=== PATIENT | female | born 1970 | race Hispanic/Latino ===

== ENCOUNTER 2017-01-10 21:36 | Observation (INO) | payer SELFPAY ==
[~2017-01-10] VITALS: Ht 147.3 cm; Wt 81.0 kg
[~2017-01-10 21:36] MED LIST: CORGARD20 MG OR; DIABETA5 MG OR; ECOTRIN325 MG PO; LEVOTHYROXIN50 MCG PO; LORTAB 5 OR; NITROQUICK0.4 MG SL; PROMETHAZINE25 M1 RE; TUSSIONEX1 ML OR
--- NOTE | 2017-01-10 21:59 | NUR ---
PATIENT MEDICATED ORDERED. WILL MONITOR PAIN FOR EFFECT.
[2017-01-10 22:08] LABS: HEMATOCRIT 33.8 % (37.0-47.0); HEMOGLOBIN 10.7 g/dl (12.0-16.0); IMMATURE GRANULOCYTES 0.3 % (0.0-1.0); MEAN CELL VOLUME 73.2 fL CALC (80.0-100.0); MEAN CORPUSCULAR HGB 23.2 pG CALC (26.0-32.0); MEAN CORPUSCULAR HGB CONC 31.7 g/L CALC (32.0-36.0); NEUT# 5.15 thou/uL (2.00-7.15); RED BLOOD COUNT 4.62 mill/uL (4.20-5.60)
[2017-01-10 22:24] LABS: ALBUMIN 4.1 g/dL (3.2-5.0); ALKALINE PHOSPHATASE 146 u/l (38-126); ANION GAP 16 (6-22 (CALC)); BILIRUBIN, TOTAL 0.2 mg/dL (0.0-1.4); BUN 8 mg/dL (7-17); BUN/CREATININE RATIO 15 (12-20 (CALC)); CALCIUM 8.9 mg/dL (8.4-10.2); CARBON DIOXIDE 20 mmol/l (22-30); CHLORIDE 110 mmol/l (95-108); CREATININE 0.5 mg/dL (0.5-1.0); GFR > 60 ML/MIN (>=60 (CALC)); GFR FOR AFR.AMER. > 60 ML/MIN (>=60 (CALC)); GLUCOSE 112 mg/dL (65-105); POTASSIUM 3.7 mmol/l (3.5-5.1); SGOT/AST 31 u/l (14-36); SGPT/ALT 55 u/l (9-52); SODIUM 142 mmol/l (137-146); TOTAL PROTEIN 7.2 g/dL (6.3-8.2)
[2017-01-10 22:35] LABS: MYOGLOBIN 22 ng/mL (0 - 62)
--- NOTE | 2017-01-10 22:55 | NUR ---
PT DENIES ANY PAIN AT THIS TIME. PT TO BE ADMITTED. FAMILY AWARE. SON TOOK PT'S MEDICATION AND PURSE HOME.
[2017-01-10] MEDS ORDERED: METFORMIN500 MG PO (22:58)
[2017-01-10] MEDS ORDERED: LOVASTATIN10 MG PO (22:59)
[2017-01-10] MEDS ORDERED: GLIPIZIDE10 MG PO (22:59)
[2017-01-10] MEDS ORDERED: TERBINAFINE250 MG PO (23:00)
[2017-01-10] MEDS ORDERED: RANITIDINE150 M1 PO (23:00)
--- NOTE | 2017-01-10 23:19 | NUR ---
REPRT GIVEN TO MIKE BURT
--- NOTE | 2017-01-10 23:30 | NUR ---
Admission Note Report Given to: MIKE BURT Transported by: X Wheelchair Stretcher Transported with: X Nurse Transporter X Patent IV O2 X Cargo Station Worker
--- NOTE | 2017-01-10 23:31 | NUR ---
PT ARRIVED TO UNIT VIA WHEELCHAIR WITH ER STAFF. AMUBULATED INDEPENDENTLY TO BED. DENIES CHEST PAIN AT THIS TIME. RESPIRATIONS EVEN AND UNLABORED. 2 FAMILY MEMBERS AT BEDSIDE. ORIENTED TO ROOM AND CALL LIGHT SYSTEM. CUSTOMER RELATIONS SPECIALIST IN PLACE.
--- NOTE | 2017-01-11 | NUR ---
PT ASLEEP AT THIS TIME. ASSESSMENT WNL. NO SIGNS OF DISTRESS NOTED. RESPIRATIONS EVEN AND UNLABORED. IV FLUIDS INFUSING WITHOUT DIFFICULTY; IV SITE APPEARS HEALTHY. SAFETY MEASURES IN PLACE. CALL LIGHT WITHIN REACH.
[2017-01-11 00:22] VITALS: BP 132/74
[2017-01-11 01:04] LABS: URINE BILIRUBIN - DIPSTICK NEGATIVE (NEGATIVE); URINE BLOOD DIPSTICK NEGATIVE (NEGATIVE); URINE CLARITY CLEAR; URINE COLOR YELLOW; URINE GLUCOSE - DIPSTICK NEGATIVE (NEGATIVE); URINE KETONE NEGATIVE (NEGATIVE); URINE LEUK ESTERASE NEGATIVE (NEGATIVE); URINE NITRITE - DIPSTICK NEGATIVE (Negative); URINE PROTEIN - DIPSTICK NEGATIVE (NEG-TRACE); URINE SPECIFIC GRAVITY <=1.005; URINE UROBILINOGEN - DIPSTICK 0.2 E.U./dL (0.2)
--- NOTE | 2017-01-11 04:10 | NUR ---
PT ASLEEP AT THIS TIME. NO SIGNS OF DISTRESS NOTED. RESPIRATIONS EVEN AND UNLBAORED. NO CHANGES IN ASSESSMENT NOTED. CONDITION APPEARS STABLE. SAFETY MEASURES IN PLACE. CALL LIGHT WITHIN REACH.
[2017-01-11 04:40] VITALS: BP 88/56
[2017-01-11 06:08] LABS: ANION GAP 13 (6-22 (CALC)); BUN 6 mg/dL (7-17); BUN/CREATININE RATIO 12 (12-20 (CALC)); CALCIUM 8.6 mg/dL (8.4-10.2); CALCULATED LDLCHOLESTEROL 94 mg/dL (62-129 (CALC)); CARBON DIOXIDE 22 mmol/l (22-30); CHLORIDE 109 mmol/l (95-108); CHOLESTEROL HDL RATIO 3.4 (<4.4 (CALC)); CREATININE 0.5 mg/dL (0.5-1.0); GFR > 60 ML/MIN (>=60 (CALC)); GFR FOR AFR.AMER. > 60 ML/MIN (>=60 (CALC)); GLUCOSE 116 mg/dL (65-105); HDL CHOLESTEROL 45 mg/dL (>=40); MAGNESIUM 1.9 mg/dL (1.6-2.3); POTASSIUM 3.8 mmol/l (3.5-5.1); SODIUM 141 mmol/l (137-146); TOTAL CHOLESTEROL 156 mg/dl (0-199); TRIGLYCERIDES REFLEX TO dLDL 82 mg/dl (30-149); VLDL CHOLESTROL 16 mg/dl (1-41 (CALC))
[2017-01-11 06:37] LABS: TSH, 3RD GENERATION 5.69 uIU/mL (0.47 - 4.68)
--- NOTE | 2017-01-11 07:25 | NUR ---
REPORT RECEIVED FROM NIGHT NURSE, PT.SLEEPING IN BED W/LIGHTS OUT AT THIS TIME, DID NOT AROUSE TO OUR ENTERING ROOM; NO S/S OF DISTRESS AT THIS TIME AND CALL LIGHT IS W/IN REACH
[2017-01-11 09:11] VITALS: BP 132/69
--- NOTE | 2017-01-11 09:20 | NUR ---
PT.ASSESSED,V/S,MORNING MEDICATIONS ADMINISTERED, PT.FAMILY AT BS; LUNG SOUNDS CLEAR, PT.LOCX3, ABD.ACTIVE/NON-TENDER, NO EDEMA OR WOUNDS NOTED, PT.EATING BREATKFAST AT THIS TIME; PT.C/O MILD BUT PERSISTENT HEADACHE, NITRO PATCH HAD BEEN REMOVED DURING THE NIGHT, I CLEANED THE AREA WHERE PATCH WAS PLACED AND WILL SEE IF THAT IMPROVES HEADACHE, WILL F/UP TO CHECK STATUS OF HEADACHE, SHE DENIES CHEST PAIN OR DISCOMFORT, SLIGHT NAUSEA AT TIMES REPORTED, BUT NOT AT THIS TIME; PT.INSTRUCTED TO CALL IF ANY NEEDS ARISE, CALL LIGHT IN REACH AND FAMILY LEFT AT BS
--- NOTE | 2017-01-11 09:47 | NUR ---
PT.FLUIDS COMPLETE AT THIS TIME, LR [place]; PT.STATES HEADACHE HAS IMPROVED, BUT NOT COMPLETELY GONE
[2017-01-11] MEDS ORDERED: GLIPIZIDE5 M2 PO (10:58)
[2017-01-11] MEDS ORDERED: GLIPIZIDE10 M3 PO (10:58)
[2017-01-11] MEDS ORDERED: ECOTRIN LOW STR81 MG PO (10:59)
[2017-01-11] MEDS ORDERED: FERRETTS325 MG PO (10:59)
[2017-01-11] MEDS ORDERED: COLACE100 MG PO (11:00)
[2017-01-11] MEDS ORDERED: BENEFIB10 PO (11:00)
[2017-01-11] MEDS ORDERED: MIRALAX3350 N1 PO (11:01)
--- NOTE | 2017-01-11 11:43 | NUR ---
PT.UPRIGHT IN BED VISITING W/FAMILY; PT.IRON IV THERAPY ADMINISTERED, DENIES ANY OTHER NEEDS AT THIS TIME
--- NOTE | 2017-01-11 13:00 | NUR ---
PT.DISCHARGED, DETECTIVE LIEUTENANT AND IV REMOVED, PT.LEAVING FLOOR AT THIS TIME VIA WC AND ACCOMPANIED BY KIMO MOE AND FAMILY; PT.IN GOOD CONDITION UPON LEAVING FLOOR
== END 2017-01-11 12:53 | disposition home or self-care (01) | DRG 313 ==
LOC: ED 21:36 → ED-I 22:30 → ED 22:49 → MS2 22:50
PROVIDERS: Emergency Medicine; ADMIT Internal Medicine; ATTEND Internal Medicine
DX: R07.9 Chest pain, unspecified (principal); I25.119 Atherosclerotic heart disease of native coronary artery with unspecified angina pectoris; E11.9 Type 2 diabetes mellitus without complications; E78.5 Hyperlipidemia, unspecified; D50.0 Iron deficiency anemia secondary to blood loss (chronic); K59.09 Other constipation; R94.6 Abnormal results of thyroid function studies; Z79.84 Long term (current) use of oral hypoglycemic drugs
CPT/HCPCS: G0378; J1650; J1756

== ENCOUNTER 2020-05-14 10:46 | Emergency (ER) | payer SELFPAY ==
[~2020-05-14] VITALS: Ht 147.3 cm; Wt 84.5 kg
[~2020-05-14 10:46] MED LIST changes: +BENEFIB10 PO; +COLACE100 MG PO; +ECOTRIN LOW STR81 MG PO; +FERRETTS325 MG PO; +GLIPIZIDE10 M3 PO; +GLIPIZIDE10 MG PO; +GLIPIZIDE5 M2 PO; +LOVASTATIN10 MG PO; +METFORMIN500 MG PO; +MIRALAX3350 N1 PO; +RANITIDINE150 M1 PO; +TERBINAFINE250 MG PO
[2020-05-14] MEDS ORDERED: ALL DAY ALLG10 MG PO (11:26)
[2020-05-14] MEDS ORDERED: GLIPIZIDE5 MG PO (11:27)
[2020-05-14 12:07] LABS: HEMATOCRIT 36.2 % (37.0-47.0); HEMOGLOBIN 11.1 g/dl (12.0-16.0); IMMATURE GRANULOCYTES 0.3 % (0.0-5.0); MEAN CELL VOLUME 74.9 fL CALC (80.0-100.0); MEAN CORPUSCULAR HGB CONC 30.7 g/dL CAL (32.0-36.0); NEUT# 4.45 thou/uL (2.00-7.15); RED BLOOD COUNT 4.83 mill/uL (4.20-5.60); RED CELL DISTRI WIDTH 15.9 % (11.5-15.5)
[2020-05-14 12:20] LABS: ALBUMIN 3.7 g/dL (3.2-5.0); ALKALINE PHOSPHATASE 147 u/l (38-126); ANION GAP 10 (6-22 (CALC)); BUN 6 mg/dL (7-17); BUN/CREATININE RATIO 12 (12-20 (CALC)); CARBON DIOXIDE 26 mmol/l (22-30); CHLORIDE 105 mmol/l (95-108); CREATININE 0.5 mg/dL (0.5-1.0); GFR > 60 ML/MIN (>=60 (CALC)); GFR FOR AFR.AMER. > 60 ML/MIN (>=60 (CALC)); POTASSIUM 3.8 mmol/l (3.5-5.1); SGOT/AST 39 u/l (14-36); SODIUM 138 mmol/l (137-146); TOTAL PROTEIN 7.2 g/dL (6.3-8.2)
[2020-05-14 12:27] LABS: BILIRUBIN, TOTAL 0.3 mg/dL (0.0-1.4)
[2020-05-14] MEDS ORDERED: NAPROXEN500 MG PO (12:49)
[2020-05-14] MEDS ORDERED: AMOXICILLIN500 MG PO (12:49)
[2020-05-14 13:20] VITALS: BP 165/70
== END 2020-05-14 13:20 | disposition home or self-care (01) | DRG 607 ==
LOC: ED 10:46
PROVIDERS: Emergency Medicine
PROC: 0HBRXZZ Excision of Toe Nail, External Approach (ICD-10-PCS; principal; 2020-05-14)
DX: L60.0 Ingrowing nail (principal); E11.9 Type 2 diabetes mellitus without complications; Z79.84 Long term (current) use of oral hypoglycemic drugs

== ENCOUNTER 2020-06-21 18:41 | Emergency (ER) | payer SELFPAY ==
[~2020-06-21] VITALS: Ht 147.3 cm; Wt 85.0 kg
[~2020-06-21 18:41] MED LIST changes: +ALL DAY ALLG10 MG PO; +AMOXICILLIN500 MG PO; +GLIPIZIDE5 MG PO; +NAPROXEN500 MG PO
[2020-06-21 19:40] LABS: HEMATOCRIT 37.1 % (37.0-47.0); HEMOGLOBIN 11.2 g/dl (12.0-16.0); IMMATURE GRANULOCYTES 0.3 % (0.0-5.0); MEAN CELL VOLUME 73.6 fL CALC (80.0-100.0); MEAN CORPUSCULAR HGB 22.2 pG CALC (26.0-32.0); MEAN CORPUSCULAR HGB CONC 30.2 g/dL CAL (32.0-36.0); NEUT# 5.14 thou/uL (2.00-7.15); RED BLOOD COUNT 5.04 mill/uL (4.20-5.60); RED CELL DISTRI WIDTH 15.9 % (11.5-15.5)
[2020-06-21 19:57] LABS: ALBUMIN 3.8 g/dL (3.2-5.0); ALKALINE PHOSPHATASE 128 u/l (38-126); ANION GAP 14 (6-22 (CALC)); BILIRUBIN, TOTAL 0.6 mg/dL (0.0-1.4); BUN 6 mg/dL (7-17); BUN/CREATININE RATIO 12 (12-20 (CALC)); CARBON DIOXIDE 19 mmol/l (22-30); CHLORIDE 109 mmol/l (95-108); CREATININE 0.5 mg/dL (0.5-1.0); GFR > 60 ML/MIN (>=60 (CALC)); GFR FOR AFR.AMER. > 60 ML/MIN (>=60 (CALC)); POTASSIUM 4.2 mmol/l (3.5-5.1); SGOT/AST 52 u/l (14-36); SODIUM 138 mmol/l (137-146); TOTAL PROTEIN 7.4 g/dL (6.3-8.2)
[2020-06-21 21:24] VITALS: BP 139/68
== END 2020-06-21 21:24 | disposition home or self-care (01) | DRG 312 ==
LOC: ED 18:41
PROVIDERS: Family Medicine
DX: R55 Syncope and collapse (principal); E11.9 Type 2 diabetes mellitus without complications; Z79.84 Long term (current) use of oral hypoglycemic drugs

== ENCOUNTER 2021-01-29 10:20 | Emergency (ER) | payer SELFPAY ==
[~2021-01-29] VITALS: Ht 147.3 cm; Wt 83.0 kg
[2021-01-29 11:49] LABS: HEMATOCRIT 42.7 % (37.0-47.0); HEMOGLOBIN 13.8 g/dl (12.0-16.0); IMMATURE GRANULOCYTES 0.1 % (0.0-5.0); MEAN CELL VOLUME 86.1 fL CALC (80.0-100.0); MEAN CORPUSCULAR HGB 27.8 pG CALC (26.0-32.0); MEAN CORPUSCULAR HGB CONC 32.3 g/dL CAL (32.0-36.0); NEUT# 4.66 thou/uL (2.00-7.15); RED BLOOD COUNT 4.96 mill/uL (4.20-5.60); RED CELL DISTRI WIDTH 13.7 % (11.5-15.5)
[2021-01-29 12:18] LABS: ALBUMIN 3.8 g/dL (3.2-5.0); ALKALINE PHOSPHATASE 128 u/l (38-126); AMYLASE 75 u/l (30-110); BILIRUBIN, TOTAL 0.4 mg/dL (0.0-1.4); BUN 6 mg/dL (7-17); BUN/CREATININE RATIO 11 (12-20 (CALC)); CHLORIDE 104 mmol/l (95-108); CREATININE 0.5 mg/dL (0.5-1.0); GFR > 60 ML/MIN (>=60 (CALC)); GFR FOR AFR.AMER. > 60 ML/MIN (>=60 (CALC)); LIPASE 116 u/l (23-300); POTASSIUM 3.9 mmol/l (3.5-5.1); SODIUM 138 mmol/l (137-146); TOTAL PROTEIN 7.2 g/dL (6.3-8.2)
[2021-01-29 12:21] LABS: ANION GAP 12 (6-22 (CALC)); CARBON DIOXIDE 26 mmol/l (22-30); SGOT/AST 109 u/l (14-36)
[2021-01-29 12:50] LABS: URINE BILIRUBIN - DIPSTICK NEGATIVE (NEGATIVE); URINE BLOOD DIPSTICK NEGATIVE (NEGATIVE); URINE COLOR YELLOW; URINE GLUCOSE - DIPSTICK NEGATIVE (NEGATIVE); URINE KETONE NEGATIVE (NEGATIVE); URINE LEUK ESTERASE NEGATIVE (NEGATIVE); URINE PH 5.5 (4.5-8.0); URINE PROTEIN - DIPSTICK NEGATIVE (NEG-TRACE); URINE SPECIFIC GRAVITY >=1.030; URINE UROBILINOGEN - DIPSTICK 0.2 E.U./dL (0.2)
[2021-01-29 12:55] LABS: URINE NITRITE - DIPSTICK NEGATIVE (Negative)
[2021-01-29] MEDS ORDERED: PROTONIX40 M2 PO (13:33)
[2021-01-29] MEDS ORDERED: ZOFRAN4 MG/TAB PO (13:33)
[2021-01-29] MEDS ORDERED: ULTRAM50 MG PO (13:33)
[2021-01-29 13:41] VITALS: BP 118/58
== END 2021-01-29 13:52 | disposition home or self-care (01) | DRG 392 ==
LOC: ED 10:20
DX: R10.13 Epigastric pain (principal); R10.11 Right upper quadrant pain; R74.8 Abnormal levels of other serum enzymes; N20.0 Calculus of kidney; I10 Essential (primary) hypertension; E11.9 Type 2 diabetes mellitus without complications; Z79.84 Long term (current) use of oral hypoglycemic drugs

== ENCOUNTER 2021-05-12 16:14 | Emergency (ER) | payer SELFPAY ==
[~2021-05-12] VITALS: Ht 147.3 cm; Wt 79.0 kg
[~2021-05-12 16:14] MED LIST changes: +PROTONIX40 M2 PO; +ULTRAM50 MG PO; +ZOFRAN4 MG/TAB PO
[2021-05-12] MEDS ORDERED: ACID CONTROL MA20 MG PO (16:57)
[2021-05-12] MEDS ORDERED: LOSARTAN POTASS25 MG PO (16:58)
[2021-05-12] MEDS ORDERED: GLIPIZIDE ER5 MG PO (16:59)
[2021-05-12] MEDS ORDERED: ALL DAY10 MG PO (16:59)
[2021-05-12 17:03] LABS: HEMATOCRIT 41.5 % (37.0-47.0); HEMOGLOBIN 13.2 g/dl (12.0-16.0); IMMATURE GRANULOCYTES 0.2 % (0.0-5.0); MEAN CELL VOLUME 81.5 fL CALC (80.0-100.0); MEAN CORPUSCULAR HGB 25.9 pG CALC (26.0-32.0); MEAN CORPUSCULAR HGB CONC 31.8 g/dL CAL (32.0-36.0); NEUT# 6.4 thou/uL (2.00-7.15); RED BLOOD COUNT 5.09 mill/uL (4.20-5.60)
[2021-05-12 17:20] LABS: ALKALINE PHOSPHATASE 192 u/l (38-126); ANION GAP 13 (6-22 (CALC)); BILIRUBIN, TOTAL 0.4 mg/dL (0.0-1.4); BUN 7 mg/dL (7-17); BUN/CREATININE RATIO 10 (12-20 (CALC)); CARBON DIOXIDE 28 mmol/l (22-30); CHLORIDE 105 mmol/l (95-108); CREATININE 0.6 mg/dL (0.5-1.0); GFR > 60 ML/MIN (>=60 (CALC)); GFR FOR AFR.AMER. > 60 ML/MIN (>=60 (CALC)); LIPASE 180 u/l (23-300); POTASSIUM 3.5 mmol/l (3.5-5.1); SGOT/AST 64 u/l (14-36); SODIUM 142 mmol/l (137-146); TOTAL PROTEIN 8.2 g/dL (6.3-8.2)
[2021-05-12 17:23] LABS: ACT PARTIAL THROMBO TIME 25.4 SECONDS (20.0-32.5); INTERNATIONAL NORMALIZED RATIO 1.1 RATIO (0.7-1.3)
[2021-05-12] MEDS ORDERED: VENTOLIN HFA IN (18:03)
[2021-05-12] MEDS ORDERED: ZPAK PO ×2 (18:03→18:04)
[2021-05-12] MEDS ORDERED: MEDDOSEPAK PO (18:03)
[2021-05-12] MEDS ORDERED: GUAIFENESIN AC PO (18:03)
[2021-05-12 18:42] VITALS: BP 126/75
== END 2021-05-12 18:53 | disposition home or self-care (01) | DRG 918 ==
LOC: ED 16:14
DX: T65.891A Toxic effect of other specified substances, accidental (unintentional), initial encounter (principal); J68.0 Bronchitis and pneumonitis due to chemicals, gases, fumes and vapors; R07.81 Pleurodynia; I10 Essential (primary) hypertension; E11.9 Type 2 diabetes mellitus without complications; Z79.84 Long term (current) use of oral hypoglycemic drugs; Z20.822 Contact with and (suspected) exposure to COVID-19